=== PATIENT | male | born 1930 | race Caucasian/White ===

== ENCOUNTER → 2022-03-11 | Outpatient (CLI) | payer MEDICARE, OTHER ==
[~2022-03-11] MED LIST: ACET325 PO; ASPI81CH PO; ATOR40TA PO; CLOP75 PO; FELO5CR PO; Felodipine ER10 MG; Felodipine ER10 MG PO; Hytrin2 MG PO; LEVSOD100 PO; LEVSOD25 PO; LISI5 PO; LOSA25 PO; MECL25 PO; METO25ER PO; OMEP20ER PO; PANT40 PO; PROM25 PO; TERA5 PO; Temazepam15 MG PO
== END | disposition home or self-care (01) ==
LOC: LAB SHORT 16:16 → LAB 16:16
DX: N39.0 Urinary tract infection, site not specified (principal)
CPT/HCPCS: 87077; 87086; 87186